=== PATIENT | female | born 1975 | race Hispanic/Latino ===

== ENCOUNTER 2019-02-13 15:06 | Inpatient (IN) | payer SELFPAY ==
[~2019-02-13] VITALS: Ht 167.6 cm; Wt 100.5 kg
[2019-02-13 16:04] LABS: EOSINOPHILS % (AUTO) 1.1 % (0.0-8.0); LYMPHOCYTES % (AUTO) 22.9 % (21.0-51.0); MEAN CORPUSCULAR HEMOGLOBIN 24.2 pg (27.0-33.0); MEAN CORPUSCULAR HGB CONC 31.8 g/dL (32.0-36.0); MEAN CORPUSCULAR VOLUME 76.3 fL (79-99); MONOCYTES % (AUTO) 5.2 % (3.0-13.0); NEUTROPHILS % (AUTO) 69.8 % (40.0-77.0); PLATELET COUNT (AUTO) 231 K/uL (130-400); RED BLOOD CELL COUNT(AUTO) 4.19 MIL/uL (4.00-5.50); RED CELL DISTRIBUTION WIDTH 17.6 % (11.0-15.5); WHITE BLOOD COUNT (AUTO) 3.7 K/uL (4.8-10.8)
[2019-02-13 16:14] LABS: CREATININE 1.1 mg/dL (0.5-1.5)
[2019-02-13 16:16] LABS: APPEARANCE,URINE Cloudy (CLEAR); BILIRUBIN,URINE Negative (NEGATIVE); COLOR,URINE Yellow (YELLOW); GLUCOSE, URINE (UA) Negative (NEGATIVE); KETONES,URINE Trace mg/dL (NEGATIVE); LEUKOCYTE ESTERASE ,URINE Trace (NEGATIVE); NITRATE,URINE Negative (NEGATIVE); OCCULT BLOOD,URINE Negative (NEGATIVE); PH,URINE 6.5 (5.0-8.0); PROTEIN,URINE Negative (NEGATIVE)
[2019-02-13 16:19] LABS: ALBUMIN 3.5 g/dL (3.5-5.0); BILIRUBIN,TOTAL 0.4 mg/dL (0.2-1.0); TOTAL PROTEIN, SERUM 7.2 g/dL (6.0-8.3)
[2019-02-13] MEDS ORDERED: ACETAMINOPHEN EXTRA STRENGTH 500 MG TABLET ONE (16:28)
[2019-02-13 17:01] LABS: BACTERIA,URINE Few /HPF (None Seen); RBC,URINE None Seen /HPF (0-1)
[2019-02-13] MEDS ORDERED: IOHEXOL-350 75 ML VIAL IV ONE (17:23)
[2019-02-13] MEDS ORDERED: NITROGLYCERIN 1GM/1 INCH PACKET TD ONE (17:29)
[2019-02-13] MEDS ORDERED: SODIUM CHLORIDE 0.9% 1000ML 1,000 ML IV ONE (17:29)
[2019-02-13] MEDS ORDERED: ENOXAPARIN SODIUM 100 MG/1 ML SQ ONE (18:46)
[2019-02-13] MEDS ORDERED: MORPHINE SULFATE 4 MG/1ML SYG IV PRN (19:45)
[2019-02-13] MEDS ORDERED: ONDANSETRON HCL 4 MG/2 ML VIAL IV PRN (19:45)
[2019-02-13] MEDS ORDERED: MORPHINE SULFATE 2 MG/ML 1ML SYG IV PRN (19:45)
[2019-02-13] MEDS ORDERED: ACETAMINOPHEN 325 MG TAB PO PRN ×2 (19:45)
[2019-02-13] MEDS ORDERED: HYDRALAZINE HCL 20 MG/ML VIAL ONE (20:22)
[2019-02-13] MEDS ORDERED: FAMOTIDINE/PF 20 MG/2 ML VIAL IV SCH (21:00)
[2019-02-13] MEDS ORDERED: FAMOTIDINE/PF 20 MG/2 ML VIAL IV ONE (21:20)
[2019-02-14] VITALS (7 sets, daily range): BP systolic 141–164; BP diastolic 81–104
[2019-02-14] MEDS: HYDRALAZINE HCL 20 MG/ML VIAL IV PRN ×2 (06:57→20:42)
--- NOTE | 2019-02-14 08:23 | NUR ---
PATIENT UPDATE PT ADMITTED FOR EH PE AND UNCONTROLLED HTN. NO MEDICAL AND SURGICAL HX, NOT TAKING ANY MEDS. BREATHING WELL WITH O2 SAT AT 99% ON ROOM AIR, SLEPT LYING FLAT IN THE BED. BLOOD PRESSURE AT 162/99 MMHG AT 0400, HYDRALAZINE 10 MG GIVEN SLOW IV PUSH FOR THE ELEVATED BP. NO COMPLAINTS OF ANY HEADACHE, NO SHORTNESS OF BREATH.
[2019-02-14] MEDS: LISINOPRIL 20 MG TABLET PO SCH (08:57)
[2019-02-14] MEDS: HYDROCHLOROTHIAZIDE 25 MG TABLET PO SCH (08:57)
[2019-02-14] MEDS: ENOXAPARIN SODIUM 100 MG/1 ML SQ SCH ×2 (08:58→20:42)
[2019-02-14] MEDS: FAMOTIDINE 20MG TAB 20 MG TAB PO SCH ×2 (09:30→20:41)
--- NOTE | 2019-02-14 11:58 | NUR ---
DALTON Rico met with pt who lives with her sister Payal Lyons [phone]. 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 Pt denies dc needs, plan is home at n[place] Addendum: 02/14/19 at 1159 by DANDRE HYDE Amended: Links added.
[2019-02-15] VITALS: BP 146/86
[2019-02-15 04:00] VITALS: BP 137/76
[2019-02-15 05:10] LABS: BASOPHILS % (AUTO) 0.2 % (0.0-5.0); EOSINOPHILS % (AUTO) 1.5 % (0.0-8.0); HEMATOCRIT 33.4 % (36-48); LYMPHOCYTES % (AUTO) 25.6 % (21.0-51.0); MEAN CORPUSCULAR HEMOGLOBIN 24.7 pg (27.0-33.0); MEAN CORPUSCULAR HGB CONC 32.1 g/dL (32.0-36.0); MEAN CORPUSCULAR VOLUME 76.8 fL (79-99); MONOCYTES % (AUTO) 6.7 % (3.0-13.0); NUCLEATED RED BLOOD CELLS 0.1 % (0.0-0.19); PLATELET COUNT (AUTO) 229 K/uL (130-400); RED BLOOD CELL COUNT(AUTO) 4.35 MIL/uL (4.00-5.50); WHITE BLOOD COUNT (AUTO) 3.9 K/uL (4.8-10.8)
[2019-02-15 05:22] LABS: INR 0.97 (0.85-1.15); PROTHROMBIN TIME 10.2 SEC (9.6-11.6)
[2019-02-15 05:23] LABS: POTASSIUM 3.4 mmol/L (3.5-5.1)
[2019-02-15 07:57] VITALS: BP 137/82
[2019-02-15] MEDS: AMLODIPINE BESYLATE 5 MG TAB PO SCH (10:54)
[2019-02-15] MEDS: HYDROCHLOROTHIAZIDE 25 MG TABLET PO SCH (10:54)
[2019-02-15] MEDS: FAMOTIDINE 20MG TAB 20 MG TAB PO SCH ×2 (10:54→22:28)
[2019-02-15] MEDS: LISINOPRIL 20 MG TABLET PO SCH (10:54)
[2019-02-15] MEDS: ENOXAPARIN SODIUM 100 MG/1 ML SQ SCH ×2 (10:55→22:31)
[2019-02-15] MEDS ORDERED: PHARMACY COMMUNICATION MISC SCH ×2 (11:30→18:00)
[2019-02-15 12:00] VITALS: BP 134/88
--- NOTE | 2019-02-15 15:40 | NUR ---
CERAMIC ARTIST CONSULT Dr. Penn doing rounds and notified in person of consult. He is aware.
[2019-02-15 16:00] VITALS: BP 137/87
[2019-02-15] MEDS ORDERED: IOHEXOL-350 75 ML VIAL IV ONE (16:59)
--- NOTE | 2019-02-15 17:45 | NUR ---
CT SCAN ABDOMEN/PELVIS Called Kevyn Leon to clarify if she wanted oral constrast stated No. Then, attempted to obtain consent from patient; patient stated she would have to think about it. Was concerned about the risks. Stated she needed to think about it and requested to give time to think. Pending consent.
[2019-02-15] MEDS ORDERED: WARFARIN SODIUM 5 MG TAB PO SCH (18:00)
--- NOTE | 2019-02-15 18:11 | NUR ---
COUMADIN Paged [facility] physician telephone maintenance mechanic to notify him that per pharmacist, pharmacist does not have a protocol for coumadin and that physicians need to give an actual order for coumadin. Kevyn Leon notified earlier of this and gave a one time order for coumadin tonight which is about to be given and she gave an order for then pharmacy to dose per INR results. Pharmacist confirmed they do not dose coumadin as there is no protocol. Pending for [facility] physician on-call to notify him of this. Addendum: 02/15/19 at 1814 by CHERI REYES RN RN Also to notify him potassium level is 3.4 and patient is in no protocol for potassium replacement.
[2019-02-15 19:48] VITALS: BP 133/92
[2019-02-15] MEDS ORDERED: POTASSIUM CHLORIDE 20 MEQ ERTAB PO PRN (20:00)
[2019-02-15] MEDS ORDERED: POTASSIUM CHLORIDE 10% ELIXIR 20 MEQ/15 ML UDCUP PO PRN (20:00)
[2019-02-16] VITALS (7 sets, daily range): BP systolic 116–147; BP diastolic 72–98
[2019-02-16 06:29] LABS: BASOPHILS % (AUTO) 0.2 % (0.0-5.0); EOSINOPHILS % (AUTO) 1.2 % (0.0-8.0); HEMATOCRIT 34.2 % (36-48); LYMPHOCYTES % (AUTO) 24.9 % (21.0-51.0); MEAN CORPUSCULAR HGB CONC 32.6 g/dL (32.0-36.0); MEAN CORPUSCULAR VOLUME 76.8 fL (79-99); MONOCYTES % (AUTO) 6.5 % (3.0-13.0); NEUTROPHILS % (AUTO) 67.2 % (40.0-77.0); NUCLEATED RED BLOOD CELLS 0.1 % (0.0-0.19); PLATELET COUNT (AUTO) 221 K/uL (130-400); RED BLOOD CELL COUNT(AUTO) 4.46 MIL/uL (4.00-5.50); RED CELL DISTRIBUTION WIDTH 18.2 % (11.0-15.5); WHITE BLOOD COUNT (AUTO) 3.8 K/uL (4.8-10.8)
[2019-02-16 06:51] LABS: POTASSIUM 3.6 mmol/L (3.5-5.1); THYROID STIMULATING HORMONE 19.2 uIU/mL (0.36-3.74)
[2019-02-16 07:02] LABS: INR 0.95 (0.85-1.15)
[2019-02-16] MEDS: LISINOPRIL 20 MG TABLET PO SCH (09:36)
[2019-02-16] MEDS: FAMOTIDINE 20MG TAB 20 MG TAB PO SCH ×2 (09:36→22:06)
[2019-02-16] MEDS: HYDROCHLOROTHIAZIDE 25 MG TABLET PO SCH (09:36)
[2019-02-16] MEDS: AMLODIPINE BESYLATE 5 MG TAB PO SCH (09:36)
[2019-02-16] MEDS: ENOXAPARIN SODIUM 100 MG/1 ML SQ SCH ×2 (09:38→22:06)
--- NOTE | 2019-02-16 13:17 | NUR ---
Diet Education BECKY provided Coumadin Diet education. BECKY reviewed all reference materials and handouts with Pt. Pt with questions. RD answered all Pt questions thoroughly. Pt verbalized understanding. BECKY encouraged Pt to notify as further questions or concerns arise. Addendum: 02/16/19 at [address] RD Amended: Links added.
[2019-02-16] MEDS ORDERED: WARFARIN SODIUM 5 MG TAB PO SCH (16:00)
--- NOTE | 2019-02-16 21:29 | NUR ---
CT SCAN ABDOMEN/PELVIS WITH CONTRAST Patient has been "thinking" about whether to have this imaging study or not since order was first written. Dr. Lemons wa snotified on Sunday evening that patient had not signed consent yet. Stated not to be too concerned about it; that he had already consulted hematology. He was notified that mushroom growing supervisor Dr. Penn had ordered for mushroom growing supervisor infection prevention coordinator to be called on Sunday to inform him of consult. Dr. Lemons is aware and OK with this. Patient was reminded of study again today in AM and in the late afternoon. She continued thinking about it. At this time she had a refusal from presented. She stated she really did not want to sign refusal either and that she would decide in AM. Incoming nurse Manuel made aware. histopathology technician Yahaira updated as well.
[2019-02-17 04:00] VITALS: BP 107/66
[2019-02-17 06:13] LABS: INR 0.98 (0.85-1.15); PROTHROMBIN TIME 10.3 SEC (9.6-11.6)
[2019-02-17 08:00] VITALS: BP 118/66
[2019-02-17] MEDS: LISINOPRIL 20 MG TABLET PO SCH (08:56)
[2019-02-17] MEDS: HYDROCHLOROTHIAZIDE 25 MG TABLET PO SCH (08:56)
[2019-02-17] MEDS: AMLODIPINE BESYLATE 5 MG TAB PO SCH (08:56)
[2019-02-17] MEDS: FAMOTIDINE 20MG TAB 20 MG TAB PO SCH ×2 (08:56→20:31)
[2019-02-17] MEDS: ENOXAPARIN SODIUM 100 MG/1 ML SQ SCH ×2 (08:58→20:30)
[2019-02-17 11:34] VITALS: BP 130/63
[2019-02-17] MEDS: WARFARIN SODIUM 7.5 MG TAB PO SCH (15:59)
[2019-02-17 16:00] VITALS: BP 116/75
[2019-02-17 19:32] VITALS: BP 130/82
[2019-02-18 00:07] VITALS: BP 119/78
[2019-02-18 04:26] VITALS: BP 107/66
[2019-02-18 05:29] LABS: BASOPHILS % (AUTO) 0.3 % (0.0-5.0); HEMATOCRIT 34.5 % (36-48); LYMPHOCYTES % (AUTO) 22.4 % (21.0-51.0); MEAN CORPUSCULAR HEMOGLOBIN 24.9 pg (27.0-33.0); MEAN CORPUSCULAR HGB CONC 32.1 g/dL (32.0-36.0); MEAN CORPUSCULAR VOLUME 77.5 fL (79-99); MONOCYTES % (AUTO) 6.6 % (3.0-13.0); NEUTROPHILS % (AUTO) 69.7 % (40.0-77.0); PLATELET COUNT (AUTO) 212 K/uL (130-400); RED BLOOD CELL COUNT(AUTO) 4.45 MIL/uL (4.00-5.50); RED CELL DISTRIBUTION WIDTH 18.3 % (11.0-15.5); WHITE BLOOD COUNT (AUTO) 3.8 K/uL (4.8-10.8)
[2019-02-18 05:36] LABS: INR 1.03 (0.85-1.15); PARTIAL THROMBOPLASTIN TIME 34.4 SEC (26.3-35.5); PROTHROMBIN TIME 10.8 SEC (9.6-11.6)
[2019-02-18 05:44] LABS: CREATININE 0.9 mg/dL (0.5-1.5); POTASSIUM 3.7 mmol/L (3.5-5.1)
[2019-02-18 07:00] VITALS: BP 115/60
[2019-02-18] MEDS: FAMOTIDINE 20MG TAB 20 MG TAB PO SCH (09:18)
[2019-02-18] MEDS: AMLODIPINE BESYLATE 5 MG TAB PO SCH (09:19)
[2019-02-18] MEDS: ENOXAPARIN SODIUM 100 MG/1 ML SQ SCH (09:19)
[2019-02-18] MEDS: LISINOPRIL 20 MG TABLET PO SCH (09:19)
[2019-02-18] MEDS: HYDROCHLOROTHIAZIDE 25 MG TABLET PO SCH (09:19)
[2019-02-18 11:51] VITALS: BP 115/81
[2019-02-18 16:39] VITALS: BP 148/85
[2019-02-18] MEDS: WARFARIN SODIUM 7.5 MG TAB PO SCH (16:43)
--- NOTE | 2019-02-18 17:54 | NUR ---
DISCHARGE PATIENT DISCHARGED HOME WITH FAMILY; PRESCRIPTION AND DC INSTRUCTIONS GIVEN; PRESCRIPTION COPY IN CHART; PIV AND TELEPACK REMOVED; ALL QUESTIONS ANSWERED
[2019-02-19] MEDS ORDERED: LEVOTHYROXINE 50 MCG TABLET PO SCH (06:30)
== END 2019-02-18 17:50 | disposition home or self-care (01) | DRG 176 ==
LOC: EDH 15:06 → EDHIP 15:07 → 3DH 21:45
PROVIDERS: ADMIT Internal Medicine; ATTEND Internal Medicine
DX: I26.99 Other pulmonary embolism without acute cor pulmonale (principal); I50.30 Unspecified diastolic (congestive) heart failure; E03.9 Hypothyroidism, unspecified; E66.01 Morbid (severe) obesity due to excess calories; I11.0 Hypertensive heart disease with heart failure; I80.9 Phlebitis and thrombophlebitis of unspecified site; R79.1 Abnormal coagulation profile; M54.9 Dorsalgia, unspecified; Z79.01 Long term (current) use of anticoagulants; Z87.891 Personal history of nicotine dependence; Z68.35 Body mass index [BMI] 35.0-35.9, adult
CPT/HCPCS: 36415; 71046; 71275; 80048; 80053; 80061; 81001; 81025; 82139; 82550; 84132; 84443; 84480; 84484; 85025; 85220; 85300; 85303; 85306; 85378; 85610; 85730; 85732; 86038; 86147; 86215; 86235; 86431; 87804; 93005; 93306; 93970; 94760; G0378; J0360; J1650; J3490; J7030; Q9967

== ENCOUNTER 2021-04-07 11:15 | Emergency (ER) | payer OTHER ==
[~2021-04-07] VITALS: Ht 170.2 cm; Wt 108.9 kg
[2021-04-07 11:16] VITALS: BP 140/78
[2021-04-07] MEDS ORDERED: FLUT1DIS IH (13:53)
[2021-04-07] MEDS ORDERED: D-ME1POW16 PO (13:53)
[2021-04-07] MEDS ORDERED: ALBUHFA IH (13:53)
[2021-04-07] MEDS ORDERED: IVER3TAB PO (13:53)
[2021-04-07] MEDS: CEFTRIAXONE 1G VIAL IM ONE (13:59)
[2021-04-07] MEDS: ALBUTEROL INHALER 90MCG/INH IH PRN (14:00)
[2021-04-07] MEDS: LIDOCAINE HCL-MPF 1% 2ML VIAL ONE (14:00)
[2021-04-07] MEDS: AZITHROMYCIN 250 MG TABLET PO ONE (14:00)
[2021-04-07] MEDS: ACETAMINOPHEN WITH CODEINE 1 TAB TAB PO ONE (14:00)
[2021-04-07] MEDS: IBUPROFEN 600 MG TABLET PO ONE (14:00)
== END 2021-04-07 14:45 | disposition home or self-care (01) ==
LOC: EDH 11:15
DX: U07.1 COVID-19 (principal); J22 Unspecified acute lower respiratory infection; J12.82 Pneumonia due to coronavirus disease 2019; Z79.899 Other long term (current) drug therapy
CPT/HCPCS: 71045; 87635; 87804 ×2; 96372; 99284; C9803; J0696; J3490